=== PATIENT | female | born 1965 | race Caucasian/White ===

== ENCOUNTER → 2018-07-26 | Outpatient (CLI) | payer OTHER ==
[~2018-07-26] MED LIST: CEFD300C37 PO; DOXY100T PO; FOLI-17 PO; HYDR200T72 PO; LEVO25TA4 PO; METH2.5T PO; OXYC-307 PO; POLY17PO5 PO; TEMA15CA6 PO; ZOLP10TA PO
== END | disposition home or self-care (01) ==
LOC: CFH 15:16
PROVIDERS: ATTEND Nurse Practitioner Family
DX: R93.1 Abnormal findings on diagnostic imaging of heart and coronary circulation (principal); I10 Essential (primary) hypertension; R06.02 Shortness of breath
CPT/HCPCS: 93306